=== PATIENT | female | born 1930 | race Hispanic/Latino ===

== ENCOUNTER 2017-09-17 15:55 | Observation (INO) | payer OTHER ==
[~2017-09-17] VITALS: Ht 137.2 cm; Wt 42.2 kg
[~2017-09-17 15:55] MED LIST: ALENDRONATE SOD70 MG PO; CALCIUM 600 +1 EAC8 PO; HYDROCODON-ACE1 EA11 PO; LISINOPRIL40 MG PO; MULTI-VITAMIN1 EACH PO; NEXIUM40 MG PO; NORCO 5-325 TA1 EACH PO; PROPRANOLOL HCL10 MG PO; URSODIOL300 MG PO; [UNRECOGNIZED DRUG - OTHER] PO
[2017-09-17] MEDS ORDERED: DIATRIZOATE MEGL/DIATRIZOA SOD 120 ML BTL PO ONE (16:44)
--- NOTE | 2017-09-17 18:30 | Diagnostic Imaging Report ---
EXAM: CT Abdomen and Pelvis WITHOUT contrast INDICATION: \S\CIRRHOSIS, ANASARCA \[id number] \S\1740 \S\N COMPARISON: None. TECHNIQUE: Abdomen and pelvis were scanned utilizing a multidetector helical scanner from the lung base to the pubic symphysis without administration of IV contrast. Absence of intravenous contrast decreases sensitivity for detection of focal lesions and vascular pathology. Coronal and sagittal reformations were obtained. Routine protocol was performed. IV CONTRAST: None ORAL CONTRAST: Administered. COMPLICATIONS: None RADIATION DOSE: Total DLP: 145.33 mGy*cm Estimated effective dose: (DLP x 0.015 x size factor) mSv CTDIvol has been reviewed. It is below the limits set by the Radiation Protocol Committee (RPC). FINDINGS: LINES and TUBES: None. LOWER THORAX: Partially imaged cardiomegaly and atherosclerotic calcification of coronary arteries. Small bilateral pleural effusions, right more than left HEPATOBILIARY: Unenhanced cirrhotic liver. Limited for evaluation of underlying mass without intravenous contrast. No biliary ductal dilation. GALLBLADDER: Cholelithiasis. SPLEEN: No splenomegaly. PANCREAS: No focal masses or ductal dilatation. ADRENALS: No adrenal nodules KIDNEYS/URETERS: No hydronephrosis. Punctate left superior pole calculus versus cortical calcification. GI TRACT: No abnormal distention, wall thickening, or evidence of bowel obstruction. Colonic diverticulosis without evidence of diverticulitis. Appendix is not clearly visualized. Small hiatal hernia. Contrast within distal esophagus, representing gastroesophageal reflux. PELVIC ORGANS/BLADDER: Unremarkable. LYMPH NODES: No lymphadenopathy. VESSELS: Limited evaluation without intravenous contrast. Moderate aortoiliac atherosclerotic disease. PERITONEUM / RETROPERITONEUM: No free air. Moderate volume ascites and mesenteric edema. BONES: Generalized demineralization limits evaluation. Lumbar spine scoliosis with multilevel advanced degenerative changes. Irregularity and increased sclerosis of the right symphysis pubic, may be related to a prior injury. Left femoral head sclerotic focus, likely a bone island. SOFT TISSUES: Mild anasarca. Bilateral buttock injection granulomas. IMPRESSION: Limited study without intravenous contrast. 1. Cirrhotic liver. 2. Moderate volume ascites, mild anasarca, and small bilateral pleural effusions, suggestive of volume overload. 3. Cholelithiasis without definite signs of cholecystitis. 4. Sigmoid diverticulosis without evidence of diverticulitis. 5. Irregularity and increased sclerosis of right symphysis pubic is probably related to prior injury. Please correlate clinically. Signed by: Dr. Vidal García MD on 09/17/2017 6:27 PM
--- NOTE | 2017-09-17 18:31 | Diagnostic Imaging Report ---
PROCEDURE: A single AP view of the chest. COMPARISON: None. INDICATIONS: SWELLING FINDINGS: Lines/tubes: None. Lungs: The lungs are well inflated. Bibasilar hazy opacities. Central vascular congestion and mild interstitial edema. Pleura: There is no pneumothorax. Heart and mediastinum: The heart and the mediastinum are unremarkable. Bones: No acute bony abnormality. IMPRESSION: Central vascular congestion and mild interstitial edema. Bibasilar hazy opacities representing small pleural effusions/atelectasis. Underlying pneumonia cannot be excluded in the proper clinical setting. Dictated by: Vidal García M.D. on 09/17/2017 at 18:40 Electronically approved by: Vidal García M.D. on 09/17/2017 at 18:40
[2017-09-17] MEDS ORDERED: SODIUM CHLORIDE FLUSH 10 ML SYR INJ PRN (18:45)
[2017-09-17] MEDS ORDERED: MORPHINE SULFATE 2 MG/ML SYR IV PRN (18:45)
[2017-09-17] MEDS ORDERED: MORPHINE SULFATE 4 MG/ML SYR IV PRN (18:45)
[2017-09-17] MEDS ORDERED: ONDANSETRON HCL INJ 2 MG/ML VIAL IV PRN (18:45)
[2017-09-17 19:02] LABS: BASOPHILS # (AUTO) 0.1 (0.0-0.1); BASOPHILS % 0.8 % (0.0-1.0); EOSINOPHILS # (AUTO) 0.2 (0.0-0.4); EOSINOPHILS % 2.5 % (0.0-6.0); HEMATOCRIT 38.1 % (34.2-44.1); HEMOGLOBIN 13.1 g/dL (12.0-16.0); LYMPHOCYTES # (AUTO) 2.1 (1.0-3.2); LYMPHOCYTES % 32.9 % (18.0-39.1); MEAN CORPUSCULAR HEMOGLOBIN 33.4 pg (28-32); MEAN CORPUSCULAR HGB CONC 34.4 g/dL (31-35); MEAN CORPUSCULAR VOLUME 97.2 fL (81-99); MONOCYTES # (AUTO) 0.6 (0.2-0.8); MONOCYTES % 8.7 % (4.4-11.3); NEUTROPHILS # (AUTO) 3.5 (2.1-6.9); NEUTROPHILS % 54.6 % (38.7-80.0); PLATELET COUNT 145 x10e3/uL (140-360); RED BLOOD COUNT 3.92 x10e6/uL (3.6-5.1); RED CELL DISTRIBUTION WIDTH 13.9 % (11.7-14.4)
[2017-09-17 19:14] LABS: ALBUMIN 3.1 g/dL (3.5-5.0); ALBUMIN/GLOBULIN RATIO 0.7 (0.8-2.0); ANION GAP 13.9 mmol/L (8-16); CALCIUM 9.7 mg/dL (8.4-10.2); CREATININE, SERUM 0.96 mg/dL (0.57-1.11); INR 0.89; MAGNESIUM 1.7 MG/DL (1.3-2.1); POTASSIUM 4.9 mmol/L (3.5-5.1); PROTHROMBIN TIME 12.5 seconds (11.9-14.5)
[2017-09-17 19:24] LABS: B-TYPE NATRIURETIC PEPTIDE2 799.3 pg/mL (0-100)
[2017-09-17 20:36] LABS: BILIRUBIN,URINE NEGATIVE (NEGATIVE); KETONES,URINE NEGATIVE (NEGATIVE); LEUKOCYTE ESTERASE ,URINE 2+ (NEGATIVE); NITRITE,URINE NEGATIVE (NEGATIVE); URINE UROBILINOGEN 0.2 mg/dL (0.2 - 1)
[2017-09-17 20:38] LABS: CLARITY,URINE SL CLOUDY (CLEAR); COLOR,URINE YELLOW (YELLOW); PROTEIN,URINE DIPSTICK TRACE (NEGATIVE)
[2017-09-17] MEDS: PIPER-TAZ 3.375 GM 50 ML IV SCH (21:59)
[2017-09-17] MEDS ORDERED: PIPER-TAZ 3.375 GM/50 ML BAG IV SCH (22:00)
[2017-09-17] MEDS ORDERED: NORVASC5 MG PO (22:01)
[2017-09-17] MEDS ORDERED: SODIUM CHLORIDE 0.9% 250ML 250 ML ONE (22:02)
[2017-09-18] VITALS (10 sets, daily range): BP systolic 140–188; BP diastolic 66–80
[2017-09-18] MEDS: PIPER-TAZ 3.375 GM 50 ML IV SCH (04:04)
[2017-09-18 06:40] LABS: BASOPHILS # (AUTO) 0.1 (0.0-0.1); BASOPHILS % 1.2 % (0.0-1.0); EOSINOPHILS # (AUTO) 0.4 (0.0-0.4); EOSINOPHILS % 7.5 % (0.0-6.0); HEMATOCRIT 31.4 % (34.2-44.1); LYMPHOCYTES # (AUTO) 1.5 (1.0-3.2); LYMPHOCYTES % 28.9 % (18.0-39.1); MEAN CORPUSCULAR HEMOGLOBIN 33.4 pg (28-32); MEAN CORPUSCULAR HGB CONC 34.4 g/dL (31-35); MEAN CORPUSCULAR VOLUME 97.2 fL (81-99); MONOCYTES # (AUTO) 0.6 (0.2-0.8); MONOCYTES % 11.2 % (4.4-11.3); NEUTROPHILS # (AUTO) 2.6 (2.1-6.9); NEUTROPHILS % 50.8 % (38.7-80.0); PLATELET COUNT 126 x10e3/uL (140-360); RED BLOOD COUNT 3.23 x10e6/uL (3.6-5.1); RED CELL DISTRIBUTION WIDTH 13.7 % (11.7-14.4)
[2017-09-18 06:46] LABS: HEMOGLOBIN 10.8 g/dL (12.0-16.0)
[2017-09-18 07:01] LABS: ALANINE AMINOTRANSFERASE 33 IU/L (0-55); ALBUMIN 2.5 g/dL (3.5-5.0); ALBUMIN/GLOBULIN RATIO 0.7 (0.8-2.0); ALKALINE PHOSPHATASE 156 IU/L (40-150); ANION GAP 12.8 mmol/L (8-16); BLOOD UREA NITROGEN 21 mg/dL (7-26); BUN/CREATININE RATIO 25 (6-25); CALCIUM 8.9 mg/dL (8.4-10.2); CARBON DIOXIDE 20 mmol/L (22-29); CHLORIDE 99 mmol/L (98-107); CREATININE, SERUM 0.83 mg/dL (0.57-1.11); EST GLOMERULAR FILTRATION RATE > 60 ML/MIN (60-); GLUCOSE 77 mg/dL (74-118); POTASSIUM 4.8 mmol/L (3.5-5.1); SODIUM 127 mmol/L (136-145)
[2017-09-18 07:19] LABS: LIPASE 103 U/L (8-78)
[2017-09-18] MEDS ORDERED: HYDROCODONE/APAP 5MG-325MG TAB PO PRN (08:45)
[2017-09-18] MEDS: FUROSEMIDE INJ 10 MG/ML 4 ML VIAL IV SCH (08:58)
[2017-09-18] MEDS: PANTOPRAZOLE SOD 40 MG TABEC PO SCH (08:58)
--- NOTE | 2017-09-18 09:24 | History and Physical ---
PCP: Yuliet Felder MD PERIODONTIST: Fidel Baca MD CHIEF COMPLAINT: Fluid overload. 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 The patient basically came in because she was loading with fluid with increasing swelling in the face, upper extremities and lower extremities. The patient also has ascites as well. The patient has had liver cirrhosis for years. Apparently she stopped the diuretic for some time now. The patient is now building up with fluid. PAST MEDICAL HISTORY: Liver cirrhosis, hypertension, osteoporosis. PAST SURGICAL HISTORY: Noncontributory. SOCIAL HISTORY: Patient does not smoke or use alcohol. No recreational drugs. She lives with her family. HOME MEDICATIONS: Alendronate, Norvasc, Nexium, ursodiol, lisinopril and [place] 5 mg p.r.n. ALLERGIES: NO KNOWN ALLERGIES. PHYSICAL EXAMINATION GENERAL: The patient is in no acute distress. She is awake. VITAL SIGNS: Temperature is 98. Blood pressure 168/74. Pulse rate is 42. HEENT: Normocephalic, atraumatic, anicteric. NECK: Supple grossly. PULMONARY: Diminished breath sounds with some rales at the bases. CARDIOVASCULAR: S1, S2. Bradycardia. ABDOMEN: Soft. EXTREMITIES: Positive edema. No cyanosis. NEUROLOGIC: No focal deficit. LABORATORY: Sodium is 127, potassium 4.8, chloride 99, bicarb 20, BUN 21, creatinine 0.8. Glucose 77. WBC is 5, hemoglobin 10.8, hematocrit 31.4, platelets 126. IMPRESSION 1. Liver cirrhosis with fluid overload. 2. Bradycardia. 3. Vascular congestion. PLAN: Paracentesis. A 2-D echocardiogram. Consultation with Dr. Mccrary for bradycardia. Will monitor the patient closely. Check thyroid function test and repeated lab work. Lasix 40 mg IV daily and Aldactone 50 mg p.o. at noontime. Job#: [id number]
[2017-09-18 09:43] LABS: FOLATE 19.2 ng/mL (7.0-15.4)
[2017-09-18] MEDS: URSODIOL 300 MG CAP PO SCH ×2 (09:50→16:28)
[2017-09-18] MEDS: SPIRONOLACTONE 25 MG TAB PO SCH (11:30)
[2017-09-19 01:18] VITALS: BP 163/72
--- NOTE | 2017-09-19 01:19 | Consultation ---
DATE OF CONSULTATION: September 18, 2017 An 86-year-old who has history of primary biliary cirrhosis along with hypertension, presented to the hospital because of increasing swelling in the face, upper and lower extremities, as well as abdominal girth. She denies any abdominal pain along with this problem. She apparently has not been taking her diuretics for quite some time. Her workup revealed that she is mildly anemic with hemoglobin of 10.8 and sodium is 127. Liver enzymes mildly elevated with an AST of 50 and alkaline phosphatase 175. Her albumin is 2.5. She has a CAT scan of the abdomen and pelvis which shows evidence of cirrhosis and also ascites as well as gallstones and diverticulosis. OTHER MEDICAL PROBLEMS: Significant for history of primary biliary cirrhosis apparently for over 30 years, history of hypertension, and history of osteoporosis. ALLERGIES: NONE. MEDICATIONS AT HOME: Alendronate, Norvasc, Nexium, ursodiol, lisinopril, and White. SOCIAL HISTORY: No alcohol abuse. FAMILY HISTORY: Noncontributory. REVIEW OF SYSTEMS: Denies any chest pain. No shortness of breath. Denies any dysphagia or odynophagia. Denies any dysuria, hematuria, or any kind of syncopal episode. PHYSICAL EXAMINATION GENERAL: Patient is awake, alert, appeared to be stable. Not in acute distress at this point. VITAL SIGNS: Afebrile currently. HEAD, EYES, EARS, NOSE, THROAT: Normocephalic. Sclerae are anicteric. NECK: Supple. HEART: Regular. ABDOMEN: Soft. It is distended with ascites. It is nontender. EXTREMITIES: No cyanosis or clubbing. LAB VALUES: 127. AST of 39, ALT of 33, alkaline phosphatase is 153. CAT scan as mentioned before. IMPRESSIONS 1. Primary biliary cirrhosis, appears to be worsening. Patient now developed ascites. There is no abdominal pain at this point. 2. Fluid overload. 3. Anemia. RECOMMENDATIONS: Agree with diuretics and also with paracentesis tomorrow. Follow labs and clinically. Job#: [id number] CF cc:MD BRIANNE CLIFTON MD
[2017-09-19 03:29] VITALS: BP 163/72
[2017-09-19] MEDS ORDERED: CORGARD20 MG PO (03:41)
[2017-09-19 04:00] VITALS: BP 160/65
[2017-09-19 06:51] LABS: BASOPHILS # (AUTO) 0.1 (0.0-0.1); EOSINOPHILS # (AUTO) 0.2 (0.0-0.4); EOSINOPHILS % 4.9 % (0.0-6.0); HEMOGLOBIN 9.5 g/dL (12.0-16.0); LYMPHOCYTES # (AUTO) 1.4 (1.0-3.2); LYMPHOCYTES % 29.6 % (18.0-39.1); MEAN CORPUSCULAR HEMOGLOBIN 33.5 pg (28-32); MEAN CORPUSCULAR HGB CONC 35.2 g/dL (31-35); MEAN CORPUSCULAR VOLUME 95.1 fL (81-99); MONOCYTES # (AUTO) 0.7 (0.2-0.8); MONOCYTES % 13.8 % (4.4-11.3); NEUTROPHILS # (AUTO) 2.5 (2.1-6.9); NEUTROPHILS % 50.3 % (38.7-80.0); PLATELET COUNT 104 x10e3/uL (140-360); RED BLOOD COUNT 2.84 x10e6/uL (3.6-5.1); RED CELL DISTRIBUTION WIDTH 13.5 % (11.7-14.4)
[2017-09-19 07:12] LABS: ANION GAP 11.6 mmol/L (8-16); CALCIUM 8.5 mg/dL (8.4-10.2); CREATININE, SERUM 1.03 mg/dL (0.57-1.11); MAGNESIUM 1.5 MG/DL (1.3-2.1); POTASSIUM 4.6 mmol/L (3.5-5.1)
[2017-09-19 08:16] VITALS: BP 137/59
[2017-09-19] MEDS: FUROSEMIDE INJ 10 MG/ML 4 ML VIAL IV SCH ×2 (08:53→09:52)
[2017-09-19] MEDS: URSODIOL 300 MG CAP PO SCH (09:00)
--- NOTE | 2017-09-19 10:56 | Consultation ---
DATE OF CONSULTATION: September 18, 2017 CONSULTING PHYSICIAN: Dr. Chin Winter. REASON FOR CONSULTATION: Bradycardia. HPI: This is an 86-year-old female that presented with fluid overload. According to the patient, she started seeing increased edema to her face, upper and lower extremities that she presented for evaluation. She has a history of biliary cirrhosis of the liver, has been on diuretic, but she has stopped taking her diuretic for long time now and started having increased fluid overload. She denies any chest pain, any palpitation, any dizziness, or shortness of breath. She was found to be on Corgard on her home medication list. Cardiology was consulted for bradycardia. PAST MEDICAL HISTORY: Liver cirrhosis, hypertension, and osteoporosis. PAST SURGICAL HISTORY: Appendectomy. FAMILY HISTORY: Noncontributory. SOCIAL HISTORY: She lives at home with her son. MEDICATIONS: She was on Norvasc, Corgard, vitamins, lisinopril, Nexium, hydrocodone, and Fosamax. ALLERGIES: SHE IS NOT ALLERGIC TO ANY MEDICATION. REVIEW OF SYSTEMS: Negative except those mentioned above. PHYSICAL EXAMINATION VITAL SIGNS: Temperature 97, heart rate 50, blood pressure 160/65, respirations 18, and oxygen saturation 98% on room air. GENERAL: She is awake, alert, and oriented times 3. HEENT: Mucous membranes moist. NECK: Supple. LUNGS: Bilateral clear to auscultation. CARDIOVASCULAR: S1, S2 present. ABDOMEN: Distended. NEUROLOGICAL: She is able to move all extremities. EXTREMITIES: Bilateral extremities with trace edema. LABS: Sodium 128, potassium 4.6, chloride 100, CO2 of 21, BUN 26, creatinine 1.03, and glucose 85. White blood cell 4.87, hemoglobin 9.5, hematocrit 27.0, and platelet 104. PT 12.5, PTT 23.8, and INR 0.89. IMPRESSION 1. Liver cirrhosis. 2. Hypertension. 3. Asymptomatic bradycardia. 4. Anemia. ASSESSMENT AND PLAN: She is asymptomatic. Heart rate in the 50s. She was on Corgard. We will go ahead and discontinue it. We will get an echo to assess the LV and the valve function. We are planning for paracentesis. We will go ahead and continue her diuretic due to the central venous congestion and mild interstitial edema. She also had a CT that showed gallstone and diverticulosis and GI is following. Further cardiac workup pending clinical course. Thank you for this consultation. Dictated by: Alexandria Reyes NP Job#: [id number] ALEX
[2017-09-19 12:05] VITALS: BP 166/71
[2017-09-19] MEDS: SPIRONOLACTONE 25 MG TAB PO SCH (13:21)
[2017-09-19] MEDS: PANTOPRAZOLE SOD 40 MG TABEC PO SCH (13:21)
--- NOTE | 2017-09-19 13:28 | Diagnostic Imaging Report ---
PROCEDURE:US ABDOMEN LIMITED COMPARISON:CT abdomen and pelvis without contrast 09/17/2017. INDICATIONS:Ascites FINDINGS: Limited 4 quadrant abdominal ultrasound was performed in anticipation of requested ultrasound-guided therapeutic paracentesis. Trace ascites is noted in the bilateral lower quadrants and right moderate, decreased relative to CT abdomen and pelvis 09/17/2017, and of insufficient quantity for ultrasound guided paracentesis. Quality Control Associate sonographic images were stored and the procedure was aborted. CONCLUSION: Aborted ultrasound guided paracentesis secondary to insufficient quantity of ascitic fluid. Dictated by: Don Merritt M.D. on 09/19/2017 at 13:37 Electronically approved by: Don Merritt M.D. on 09/19/2017 at 13:37
--- NOTE | 2017-11-12 21:27 | Discharge Summary ---
FINAL DIAGNOSES 1. Liver cirrhosis associated with vascular congestion and abdominal ascites. 2. Abdominal pain, stable. 3. No significant abdominal fluid for paracentesis. SUMMARY: Patient is 86-year-old female, who came in with abdominal pain. Evaluation showed possible ascites. The patient was evaluated by interventional radiology. There was no significant ascites for paracentesis. The patient was stable. She was comfortable. No further workup needed. The patient's liver cirrhosis, vascular congestion, to resume home medication. Bradycardia resolved. Lasix 40 mg IV daily. Aldactone 50 mg daily was given. Those medications to orally. Patient was stable, discharged home. 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 Patient expressed understanding. Medication was given. Patient discharged home. Follow up with Dr. Yuliet Felder as an outpatient. Job#: [id number] CQ
== END 2017-09-19 15:04 | disposition home or self-care (01) ==
LOC: ER 15:55 → ERHOLD 19:38 → IMCU 09-18 01:10
PROVIDERS: ADMIT Internal Medicine; ATTEND Internal Medicine
DX: K74.3 Primary biliary cirrhosis (principal); E87.70 Fluid overload, unspecified; R18.8 Other ascites; J90 Pleural effusion, not elsewhere classified; K57.30 Diverticulosis of large intestine without perforation or abscess without bleeding; R00.1 Bradycardia, unspecified; D64.9 Anemia, unspecified; I10 Essential (primary) hypertension; M81.0 Age-related osteoporosis without current pathological fracture; K80.20 Calculus of gallbladder without cholecystitis without obstruction
CPT/HCPCS: 36415 ×3; 71045; 74176; 76705; 80048; 80053 ×2; 81001; 82607; 82746; 83605; 83690 ×2; 83735 ×2; 83880; 84100; 84443; 85025 ×3; 85610; 85730; 87040; 87086; 87186; 93005; 93306; 96365; 99284; G0378 ×3; J1940 ×2; J2543 ×2; J7050; Q9963

== ENCOUNTER → 2018-04-08 | Outpatient (CLI) | payer OTHER ==
[~2018-04-08] MED LIST changes: +CORGARD20 MG PO; +NORVASC5 MG PO
--- NOTE | 2018-04-08 10:20 | Diagnostic Imaging Report ---
PROCEDURE:ABDOMINAL ULTRASOUND COMPARISON:Limited abdominal ultrasound 09/19/[address] Abdomen/Pelvis 09/17/17. INDICATIONS: Abnormal Liver Function, Cirrhosis TECHNIQUE: Transverse and longitudinal images of the upper abdomen were obtained. FINDINGS: Exam limited by overlying bowel gas and respiratory artifact. Liver: Size: 9.9 cm in the right midclavicular line, normal Appearance: Cirrhotic morphology Mass: No focal masses Spleen: Size: 11.1 cm in length, normal Echogenicity: Normal Mass: No focal masses Gallbladder: The gallbladder is non-distended but has stones and wall thickening. No pericholecystic fluid. Negative reported sonographic Reese's sign. Bile Ducts: Intrahepatic Ducts: No dilatation Extrahepatic Ducts: Common bile duct measures 0.3 cm, no dilatation Pancreas: Visualized portions of the neck and proximal body are normal. Right Kidney: Size: 7.9 cm Echogenicity: Mildly increased. Collecting System: No hydronephrosis Stone: None Cyst/Mass: None Left Kidney: Size: 7.7 cm Echogenicity: Mildly increased. Collecting System: No hydronephrosis Stone: None Cyst/Mass: None Vessels: Aorta: Visualized portions are normal Inferior Vena Cava: Visualized portions and normal Main Portal Vein: 1.2 cm, normal size with hepatopedal flow. Free Fluid: Trace abdominal ascites. IMPRESSION: Cirrhotic liver with trace abdominal ascites. Non-distended gallbladder with wall thickening. Gallstones. No specific sonographic signs of cholecystitis. Dictated by: EFFIE CRONIN M.D. on 04/08/2018 at 8:35 Electronically approved by: EFFIE CRONIN M.D. on 04/08/2018 at 8:35
== END ==
LOC: US 07:37
PROVIDERS: ATTEND Internal Medicine Gastroenterology
DX: K74.3 Primary biliary cirrhosis (principal); R74.0 Nonspecific elevation of levels of transaminase and lactic acid dehydrogenase [LDH]; D64.9 Anemia, unspecified; Z68.1 Body mass index [BMI] 19.9 or less, adult; Z87.891 Personal history of nicotine dependence
CPT/HCPCS: 76700

== ENCOUNTER → 2018-07-02 | Day surgery (SDC) | payer OTHER ==
[~2018-07-02] MED LIST changes: +FUROSEMIDE40 MG PO; +LACTULOSE10 GM/15 M PO; +LIDOCAINE HCL 2% LOCAL INJ 5 ML SDV VIAL INJ ONE; +PROPOFOL IV EMULSION 10 MG/ML 20 ML VIAL ONE; +SPIRONOLACTONE25 MG PO; +TYLENOL WITH C1 EACH PO; +URSODIOL300 MG; +XIFAXAN550 MG; +XIFAXAN550 MG PO
--- OUTSIDE RECORDS SUMMARY | 2018-07-02 05:34 | XMS REPORT ---
Author Author [facility] Address Unknown Phone Unavailable Care Team Providers Care Cigarette Paper Tester Name Role Phone Apryl PEARL Unavailable Unavailable OPAL SANCHEZ Unavailable Unavailable Problems This patient has no known problems. Allergies, Adverse Reactions, Alerts This patient has no known allergies or adverse reactions. Medications This patient has no known medications. Results Test Description Test Time Test Comments Text Results Atomic Results Result Comments US ABDOMEN COMPLETE 2018-04-08 08:35:00 [facility] [address] [address] Patient Name: MARYA GREENE MR #: [id number] : 1930 Age/Sex: 87/F Req #: [id number] Adm Physician: Ordered by: FUENTES PEARL MD Report #: [id number] Location: US Room/Bed: Procedure: [id number] US/US ABDOMEN COMPLETE Exam Date: Exam Time: REPORT STATUS: Signed PROCEDURE: ABDOMINAL ULTRASOUND COMPARISON: Limited abdominal ultrasound 09/19/[address] Abdomen/Pelvis 09/17/17. INDICATIONS: Abnormal Liver Function, Cirrhosis TECHNIQUE: Transverse and longitudinal images of the upper abdomen were obtained. FINDINGS: Exam limited by overlying bowel gas and respiratory artifact. Liver: Size: 9.9 cm in the right midclavicular line, normal Appearance: Cirrhotic morphology Mass: No focal masses Spleen: Size: 11.1 cm in length, normal Echogenicity: Normal Mass: No focal masses Gallbladder: The gallbladder is non-distended but has stones and wall thickening. No pericholecystic fluid. Negative reported sonographic Reese's sign. Bile Ducts: Intrahepatic Ducts: No dilatation Extrahepatic Ducts: Common bile duct measures 0.3 cm, no dilatation Pancreas: Visualized portions of the neck and proximal body are normal. Right Kidney: Size: 7.9 cm Echogenicity: Mildly increased. Collecting System: No hydronephrosis Stone: None Cyst/Mass: None Left Kidney: Size: 7.7 cm Echogenicity: Mildly increased. Collecting System: No hydronephrosis Stone: None Cyst/Mass: None Vessels: Aorta: Visualized portions are normal Inferior Vena Cava: Visualized portions and normal Main Portal Vein: 1.2 cm, normal size with hepatopedal flow. Free Fluid: Trace abdominal ascites. IMPRESSION: Cirrhotic liver with trace abdominal ascites. Non-distended gallbladder with wall thickening. Gallstones. No specific sonographic signs of cholecystitis. Dictated by: EFFIE CRONIN M.D. on 04/08/2018 at 8:35 Electronically approved by: EFFIE CRONIN M.D. on 04/08/2018 at 8:35 Dictated By: EFFIE CRONIN MD 4 Transcribed By: CHANO on 04/08/18834 COPY TO: FUENTES PEARL MD US ABDOMEN LIMITED [address] [address] Patient Name: MARYA GREENE MR #: [id number] : 1930 Age/Sex: 86/F Req #: [id number] Adm Physician: OPAL SANCHEZ MD Ordered by: OPAL SANCHEZ MD Report #: [id number] Location: [facility] Room/Bed: [address] [address] Procedure: [id number] US/US ABDOMEN LIMITED Exam Date: Exam Time: REPORT STATUS: Signed PROCEDURE: US ABDOMEN LIMITED COMPARISON: CT abdomen and pelvis without contrast 09/17/2017. INDICATIONS: Ascites FINDINGS: Limited 4 quadrant abdominal ultrasound was performed in anticipation of requested ultrasound-guided therapeutic paracentesis. Trace ascites is noted in the bilateral lower quadrants and right moderate, decreased relative to CT abdomen and pelvis 09/17/2017, and of insufficient quantity for ultrasound guided paracentesis. Process Inspector sonographic images were stored and the procedure was aborted. CONCLUSION: Aborted ultrasound guided paracentesis secondary to insufficient quantity of ascitic fluid. Dictated by: Mary Nice M.D. on 09/19/2017 at 13:37 Electronically approved by: Mary Nice M.D. on 09/19/2017 at 13:37 Dictated By: MARY NICE MD 1337 Transcribed By: CHANO on 09/19/17 1337 COPY TO: OPAL SANCHEZ MD CT ABDOMEN/PELVIS WO [address] [place] [address] Patient Name: MARYA GREENE MR #: [id number] : 1930 Age/Sex: 86/F Req #: [id number] Adm Physician: Ordered by: RADHA JUDD MD Report #: [id number] Location: ER Room/Bed: Procedure: [id number] CT/CT ABDOMEN/PELVIS WO Exam Date: 09/17/17 Exam Time: 1740 REPORT STATUS: Signed EXAM: CT Abdomen and Pelvis WITHOUT contrast INDICATION: COMPARISON: None. TECHNIQUE: Abdomen and pelvis were scanned utilizing a multidetector helical scanner from the lung base to the pubic symphysis without administration of IV contrast. Absence of intravenous contrast decreases sensitivity for detection of focal lesions and vascular pathology. Coronal and sagittal reformations were obtained. Routine protocol was performed. IV CONTRAST: None ORAL CONTRAST: Administered. COMPLICATIONS: None RADIATION DOSE: Total DLP: 145.33 mGy*cm Estimated effective dose: (DLP x 0.015 x size factor) mSv CTDIvol has been reviewed. It is below the limits set by the Radiation Protocol Committee (RPC). FINDINGS: LINES and TUBES: None. LOWER THORAX: Partially imaged cardiomegaly and atherosclerotic calcification of coronary arteries. Small bilateral pleural effusions, right more than left HEPATOBILIARY: Unenhanced cirrhotic liver. Limited for evaluation of underlying mass without intravenous contrast. No biliary ductal dilation. GALLBLADDER: Cholelithiasis. SPLEEN: No splenomegaly. PANCREAS: No focal masses or ductal dilatation. ADRENALS: No adrenal nodules KIDNEYS/URETERS: No hydronephrosis. Punctate left superior pole calculus versus cortical calcification. GI TRACT: No abnormal distention, wall thickening, or evidence of bowel obstruction. Colonic diverticulosis without evidence of diverticulitis. Appendix is not clearly visualized. Small hiatal hernia. Contrast within distal esophagus, representing gastroesophageal reflux. PELVIC ORGANS/BLADDER: Unremarkable. LYMPH NODES: No lymphadenopathy. VESSELS: Limited evaluation without intravenous contrast. Moderate aortoiliac atherosclerotic disease. PERITONEUM / RETROPERITONEUM: No free air. Moderate volume ascites and mesenteric edema. BONES: Generalized demineralization limits evaluation. Lumbar spine scoliosis with multilevel advanced degenerative changes. Irregularity and increased sclerosis of the right symphysis pubic, may be related to a prior injury. Left femoral head sclerotic focus, likely a bone island. SOFT TISSUES: Mild anasarca. Bilateral buttock injection granulomas. IMPRESSION: Limited study without intravenous contrast. 1. Cirrhotic liver. 2. Moderate volume ascites, mild anasarca, and small bilateral pleural effusions, suggestive of volume overload. 3. Cholelithiasis without definite signs of cholecystitis. 4. Sigmoid diverticulosis without evidence of diverticulitis. 5. Irregularity and increased sclerosis of right symphysis pubic is probably related to prior injury. Please correlate clinically. Signed by: Dr. Vidal Weaver MD on 09/17/2017 6:27 PM Dictated By: VIDAL WEAVER MD 26 Transcribed By: JIE on 09/17/171826 COPY TO: RADHA JUDD MD CHEST SINGLE (PORTABLE) [address] [place] [address] Patient Name: MARYA GREENE MR #: [id number] : 1930 Age/Sex: 86/F Req #: [id number] Adm Physician: Ordered by: RADHA JUDD MD Report #: [id number] Location: ER Room/Bed: Procedure: [id number] DX/CHEST SINGLE (PORTABLE) Exam Date: 09/17/17 Exam Time: 1740 REPORT STATUS: Signed PROCEDURE: A single AP view of the chest. COMPARISON: None. INDICATIONS: SWELLING FINDINGS: Lines/tubes: None. Lungs: The lungs are well inflated. Bibasilar hazy opacities. Central vascular congestion and mild interstitial edema. Pleura: There is no pneumothorax. Heart and mediastinum: The heart and the mediastinum are unremarkable. Bones: No acute bony abnormality. IMPRESSION: Central vascular congestion and mild interstitial edema. Bibasilar hazy opacities representing small pleural effusions/atelectasis. Underlying pneumonia cannot be excluded in the proper clinical setting. Dictated by: Vidal Weaver M.D. on 09/17/2017 at 18:40 Electronically approved by: Vidal Weaver M.D. on 09/17/2017 at 18:40 Dictated By: VIDAL WEAVER MD 39 Transcribed By: CHANO on 09/17/171839 COPY TO: RADHA JUDD MD
[2018-07-02 07:13] LABS: BASOPHILS # (AUTO) 0.1 (0.0-0.1); EOSINOPHILS # (AUTO) 0.4 (0.0-0.4); EOSINOPHILS % 8.2 % (0.0-6.0); HEMATOCRIT 39.6 % (34.2-44.1); HEMOGLOBIN 12.9 g/dL (12.0-16.0); LYMPHOCYTES # (AUTO) 1.5 (1.0-3.2); LYMPHOCYTES % 29.4 % (18.0-39.1); MEAN CORPUSCULAR HEMOGLOBIN 33.4 pg (28-32); MEAN CORPUSCULAR HGB CONC 32.6 g/dL (31-35); MEAN CORPUSCULAR VOLUME 102.6 fL (81-99); MONOCYTES # (AUTO) 0.4 (0.2-0.8); MONOCYTES % 8.7 % (4.4-11.3); NEUTROPHILS # (AUTO) 2.6 (2.1-6.9); NEUTROPHILS % 52.3 % (38.7-80.0); PLATELET COUNT 138 x10e3/uL (140-360); RED BLOOD COUNT 3.86 x10e6/uL (3.6-5.1); RED CELL DISTRIBUTION WIDTH 15.8 % (11.7-14.4)
--- NOTE | 2018-07-02 08:40 | Operative Report ---
DATE OF PROCEDURE: July 02, 2018 PROCEDURE: Esophagogastroduodenoscopy. The patient with a history of cirrhosis. Rule out esophageal varices. PROCEDURE: After informed written consent, premedication with monitored anesthesia care, standard video Olympus gastroscope was introduced into the mouth, esophagus, stomach, and to the 2nd portion of the duodenum. First and 2nd portion of the duodenum appeared to be normal. Antrum, body and fundus showed moderate portal hypertensive gastropathy. Retroflexion revealed a small hiatal hernia. The esophagus showed 1-2+ esophageal varices. There was no stigmata. IMPRESSION 1. Hiatal hernia. 2. One to 2+ esophageal varices. 3. Portal gastropathy. RECOMMENDATIONS: Stay on PPI, beta blockers and follow her on clinical rounds. Further recommendations will be based on the patient's clinical course. Job#: [id number] VALERIA
[2018-07-02 08:55] VITALS: BP 152/64
== END | disposition home or self-care (01) ==
LOC: OR 05:32
PROVIDERS: ATTEND Internal Medicine Gastroenterology
DX: K74.60 Unspecified cirrhosis of liver (principal); I85.10 Secondary esophageal varices without bleeding; K76.6 Portal hypertension; K44.9 Diaphragmatic hernia without obstruction or gangrene; K31.89 Other diseases of stomach and duodenum; Z71.3 Dietary counseling and surveillance; R18.8 Other ascites; K74.3 Primary biliary cirrhosis; I11.0 Hypertensive heart disease with heart failure; I50.9 Heart failure, unspecified; M19.90 Unspecified osteoarthritis, unspecified site
CPT/HCPCS: 36415; 43235; 85025; 93005; J2001; J2704

== ENCOUNTER 2019-01-26 16:30 | Emergency (ER) | payer OTHER ==
[~2019-01-26] VITALS: Ht 259.1 cm; Wt 42.2 kg
[~2019-01-26 16:30] MED LIST changes: -LIDOCAINE HCL 2% LOCAL INJ 5 ML SDV VIAL INJ ONE; -PROPOFOL IV EMULSION 10 MG/ML 20 ML VIAL ONE
--- OUTSIDE RECORDS SUMMARY | 2019-01-26 16:33 | XMS REPORT | Continuity of Care Document ---
Author Author [facility] Address Unknown Phone Unavailable Problems Problem Status Onset Date Classification Date Reported Comments Source Age-related osteoporosis without current pathological fracture Active Problem 01/15/2019 Donald Ramirezer Vitamin D deficiency Active Problem 01/15/2019 Donald Florian Scleroderma, limited Active Problem 01/15/2019 Donald Florian Other intermediate drug therapy Active Problem 01/15/2019 Donald Florian Raynaud''s disease without gangrene Active Problem 01/15/2019 Donald Florian Body mass index 20.0-20.9, adult Active Problem 01/15/2019 Donald Florian Polyarthritis Active Problem 01/15/2019 Donald Florian 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/2019 Donald Florian Other osteoporosis without current pathological fracture Active Problem 01/15/2019 Donald Florian Renal insufficiency Active Problem 01/15/2019 Donald Florian Medications Medication Details Route Status Patient Instructions Ordering Provider Order Date Source Prolia 60MG SQ Subcutaneous Active 60 MG/ML Subcutaneous Q 6 MONTHS [place] Donald Florian Spironolactone 1 tablet with food Orally Active 25 MG Orally Once a day [place] Donald Florian Rifaximin 1 tablet Orally Active 550 MG Orally Twice a day [place] Donald Florian Furosemide 1 tablet Orally Active 40 MG Orally Once a day [place] Donald Florian Lactulose 1 packet Orally Active 10 GM Orally Once a day [place] Donald Florian Esomeprazole Magnesium 1 capsule Orally Active 40 MG Orally Once a day [place] Donald Florian Nadolol 1 tablet Orally Active 20 MG Orally Once a day [place] Donald Florian Furosemide 1 tablet Orally Active 20 MG Orally Once a day [place] Donald Florian Lisinopril 1 tablet Orally Active 40 MG Orally Once a day [place] Donald Florian Colestipol HCl 2 tablets Orally Active 1 GM Orally bid [place] Donald Florian Ursodiol 1 tablet Orally Active 300 MG Orally Twice a day [place] Donald Florian Allergies, Adverse Reactions, Alerts Substance Category Reaction Severity Reaction type Status Date Reported Comments Source Alendronate Sodium Adverse Reaction Info Not Available Adverse Reaction Active 07/26/2018 Donald Florian Immunizations Immunization Date Given Site Status Last Updated Comments Source Results Order Name Results Value Reference Range Date Interpretation Comments Source Vital Signs Vital Sign Value Date Comments Source Weight 81.9 07/26/2018 Donald Florian Height 55 07/26/2018 Donald Florian Temperature Oral (F) 97.0 F 07/26/2018 Donald Florian Heart Rate 84 07/26/2018 Donald Florian Diastolic (mm Hg) 70 07/26/2018 Donald Florian Systolic (mm Hg) 132 07/26/2018 Donald Florian Weight 82 01/22/2018 Donald Florian Height 54 01/22/2018 Donald Florian Temperature Oral (F) 98.2 F 01/22/2018 Donald Florian Heart Rate 46 01/22/2018 Donald Florian Diastolic (mm Hg) 68 01/22/2018 Donald Florian Systolic (mm Hg) 100 01/22/2018 Donald Florian Weight 82 07/16/2017 Donald Florian Height 54 07/16/2017 Donald Florian Temperature Oral (F) 97.4 F 07/16/2017 Donald Florian Heart Rate 48 07/16/2017 Donald Florian Diastolic (mm Hg) 50 07/16/2017 Donald Florian Systolic (mm Hg) 108 07/16/2017 Donald Florian Encounters Location Location Details Encounter Type Encounter Number Reason For Visit Attending Provider ADM Date DC Date Status Source Procedures Procedure Code Date Perfomer Comments Source
--- OUTSIDE RECORDS SUMMARY | 2019-01-26 16:34 | XMS REPORT ---
Author Author Wally Florian Organization [employer] Address Unknown Phone Unavailable Care Team Providers Care Senior System Operator Name Role Phone Wally Florian CP Unavailable Allergies No Known Allergies Problems Problem Type Condition Code Onset Dates Condition Status Problem Age-related osteoporosis without current pathological fracture M81.0 Active Problem Vitamin D deficiency E55.9 Active Assessment Other assisted (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 Z79.899 Active Assessment Vitamin D deficiency E55.9 Active Assessment Age-related osteoporosis without current pathological fracture M81.0 Active Problem Scleroderma, limited M34.9 Active Problem 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
--- OUTSIDE RECORDS SUMMARY | 2019-01-26 16:34 | XMS REPORT ---
Author Author Wally Florian Organization [employer] Address Unknown Phone Unavailable Care Team Providers Care Installer Technician Name Role Phone Wally Florian CP Unavailable Allergies, Adverse Reactions, Alerts Substance Reaction Event Type Alendronate Sodium Info Not Available Drug Allergy Problems Problem Type Condition Code Onset Dates Condition Status Assessment Age-related osteoporosis without current pathological fracture M81.0 Active Problem Age-related osteoporosis without current pathological fracture M81.0 Active Problem Vitamin D deficiency E55.9 Active Problem Scleroderma, limited M34.9 Active Problem 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.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 Active Problem Raynaud''s disease without gangrene I73.00 Active Problem Body mass index (BMI) 20.0-20.9, adult Z68.20 Active Problem Polyarthritis M13.0 Active Problem 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 Active Problem Other osteoporosis without current pathological fracture M81.8 Active Assessment Vitamin D deficiency E55.9 Active Assessment Other osteoporosis without current pathological fracture M81.8 Active Assessment Scleroderma, limited M34.9 Active Assessment Polyarthritis M13.0 Active Medications Medication Code System Code Instructions Start Date End Date Status Dosage Spironolactone ND 41757744559 25 MG Orally Once a day Active 1 tablet with food Rifaximin [facility] [address]-28 550 MG Orally Twice a day Active 1 tablet Furosemide ND 82776868006 40 MG Orally Once a day Active 1 tablet Lactulose [facility] [address]-73 10 GM Orally Once a day Active 1 packet Prolia ND 73289295060 60 MG/ML Subcutaneous Q 6 MONTHS Active 60MG SQ Esomeprazole Magnesium ND 81560849802 40 MG Orally Once a day Active 1 capsule Vital Signs Date/Time: January 22, 2018 BMI 19.77 Index Weight 82 lbs Height 54 in Temperature 98.2 F Cardiac Monitoring Heart Rate 46 /min Blood Pressure Diastolic 68 mm Hg Blood Pressure Systolic 100 mm Hg Results No Known Results Summary Purpose [employer] Submission
--- OUTSIDE RECORDS SUMMARY | 2019-01-26 16:34 | XMS REPORT ---
Author Author Wally Florian [facility] e[employer] Address Unknown Phone Unavailable Care Team Providers Care Air Quality Consultant Name Role Phone Wally Florian Unavailable Allergies, Adverse Reactions, Alerts Substance Reaction Event Type Alendronate Sodium Info Not Available Drug Allergy Problems Problem Type Condition Code Onset Dates Condition Status Assessment Age-related osteoporosis without current pathological fracture M81.0 Active Problem Age-related osteoporosis without current pathological fracture M81.0 Active Problem Vitamin D deficiency E55.9 Active Problem Scleroderma, limited M34.9 Active Problem 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.899 Active Problem Raynaud''s disease without gangrene I73.00 Active Problem Body mass index (BMI) 20.0-20.9, adult Z68.20 Active Problem Polyarthritis M13.0 Active Problem 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 Active Problem Other osteoporosis without current pathological fracture M81.8 Active Assessment Vitamin D deficiency E55.9 Active Assessment Polyarthritis M13.0 Active Assessment Scleroderma, limited M34.9 Active Assessment 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.899 Active Assessment Raynaud''s disease without gangrene I73.00 Active Medications Medication Code System Code Instructions Start Date End Date Status Dosage Nadolol ND 67608947673 20 MG Orally Once a day Active 1 tablet Spironolactone ND 82822338689 25 MG Orally QD Active 1 tablet Prolia ND 76589995913 60 MG/ML Subcutaneous Q 6 MONTHS Active 60MG SQ Furosemide ND 52704234748 20 MG Orally Once a day Active 1 tablet Lisinopril ND 66668017927 40 MG Orally Once a day Active 1 tablet Colestipol HCl ND 01651454861 1 GM Orally bid Active 2 tablets Ursodiol ND 56591460935 300 MG Orally Twice a day Active 1 tablet Vital Signs Date/Time: Jul 16, 2017 BMI 19.77 Index Weight 82 lbs Height 54 in Temperature 97.4 F Cardiac Monitoring Heart Rate 48 /min Blood Pressure Diastolic 50 mm Hg Blood Pressure Systolic 108 mm Hg Results No Known Results Summary Purpose [employer]ClinicalWorks Submission
--- OUTSIDE RECORDS SUMMARY | 2019-01-26 16:34 | XMS REPORT ---
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
--- OUTSIDE RECORDS SUMMARY | 2019-01-26 16:34 | XMS REPORT ---
Author Author Wally Florian Organization [employer] Address Unknown Phone Unavailable Care Team Providers Care Universal Worker Assisted Living Name Role Phone Wally Florian CP Unavailable Allergies No Known Allergies Problems Problem Type Condition Code Onset Dates Condition Status Problem Vitamin D deficiency E55.9 Active Problem Polyarthritis M13.0 Active Problem Age-related osteoporosis without current pathological fracture M81.0 Active Assessment Other jail (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 Z79.899 Active Assessment Other osteoporosis without current pathological fracture M81.8 Active Assessment Polyarthritis M13.0 Active Problem Raynaud''s disease without gangrene I73.00 Active Problem Scleroderma, limited M34.9 Active Problem Renal insufficiency N28.9 Active Problem Other osteoporosis without current pathological fracture M81.8 Active Problem Body mass index (BMI) 20.0-20.9, adult Z68.20 Active Problem 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
--- OUTSIDE RECORDS SUMMARY | 2019-01-26 16:34 | XMS REPORT ---
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
--- OUTSIDE RECORDS SUMMARY | 2019-01-26 16:34 | XMS REPORT ---
Author Author Wally Florian Organization [employer] Address Unknown Phone Unavailable Care Team Providers Care Certified Hyperbaric Technologist Name Role Phone Wally Florian CP Unavailable Allergies No Known Allergies Problems Problem Type Condition Code Onset Dates Condition Status Problem Vitamin D deficiency E55.9 Active Problem Polyarthritis M13.0 Active Problem Age-related osteoporosis without current pathological fracture M81.0 Active Problem Raynaud''s disease without gangrene I73.00 Active Problem Scleroderma, limited M34.9 Active Problem Renal insufficiency N28.9 Active Problem Other osteoporosis without current pathological fracture M81.8 Active Problem Body mass index (BMI) 20.0-20.9, adult Z68.20 Active Problem 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
--- OUTSIDE RECORDS SUMMARY | 2019-01-26 16:34 | XMS REPORT ---
Author Author Wally Florian Organization [employer] Address Unknown Phone Unavailable Care Team Providers Care Him Analyst Name Role Phone Wally Florian CP Unavailable [...] (BMI) 20.0-20.9, adult Z68.20 Active Problem Other long term care social worker (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
--- OUTSIDE RECORDS SUMMARY | 2019-01-26 16:34 | XMS REPORT ---
Author Author Wally Florian [facility] e[employer] Address Unknown Phone Unavailable Care Team Providers Care Social Work Professor Name Role Phone Wally Florian Unavailable Allergies, [...] (BMI) 20.0-20.9, adult Z68.20 Active Problem Other correction (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 Z79.899 Active Problem 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 Active Assessment Raynaud''s disease without gangrene I73.00 Active Assessment Polyarthritis M13.0 Active Assessment Scleroderma, limited M34.9 Active Assessment Renal insufficiency N28.9 Active Assessment Age-related osteoporosis without current pathological fracture M81.0 Active Assessment 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 Active Medications Medication Code System Code Instructions Start Date End Date Status Dosage Furosemide ND 55361196388 40 MG Orally Once a day Active 1 tablet Lactulose [facility] [address]-09 10 GM Orally Once a day Active 1 packet Spironolactone ND 17284649610 25 MG Orally Once a day Active 1 tablet with food Rifaximin [facility] [address]-64 550 MG Orally Twice a day Active 1 tablet Prolia ND 80752767214 60 MG/ML Subcutaneous Q 6 MONTHS Active 60MG SQ Esomeprazole Magnesium ND 92610977870 40 MG Orally Once a day Active 1 capsule Vital Signs Date/Time: Jul 26, 2018 BMI 19.03 Index Weight 81.9 lbs Height 55 in Temperature 97.0 F Cardiac Monitoring Heart Rate 84 /min Blood Pressure Diastolic 70 mm Hg Blood Pressure Systolic 132 mm Hg Results No Known Results Summary Purpose eClinicalWorks Submission
--- OUTSIDE RECORDS SUMMARY | 2019-01-26 16:34 | XMS REPORT ---
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
[2019-01-26] MEDS ORDERED: TRAMADOL HCL 50 MG TAB PO NR (17:00)
[2019-01-26] MEDS ORDERED: FUROSEMIDE40 MG PO (17:03)
[2019-01-26] MEDS ORDERED: LISINOPRIL40 MG PO (17:03)
[2019-01-26] MEDS ORDERED: AMLODIPINE BESYL5 MG PO (17:03)
--- NOTE | 2019-01-26 18:27 | Diagnostic Imaging Report ---
Exams: Head and cervical spine CTs without IV contrast History: Trauma, fall Comparison studies: None Technique: Axial images were obtained from the brain and cervical spine. Coronal and sagittal images reconstructed from the axial data. Dose modulation, iterative reconstruction, and/or weight based adjustment of the mA/kV was utilized to reduce the radiation dose to as low as reasonably achievable. Radiation dose: Total DLP: 999 mGy*cm. Estimated effective dose: DLP x 0.015 Intravenous contrast: None Findings: Head CT: Scalp: Right parieto-occipital scalp hematoma. No retained hyperdense foreign body. Bones: No fractures, blastic or lytic lesions. Extra-axial spaces: No masses. No fluid collections. Brain sulci: Mildly prominent but age appropriate. Ventricles: Normal in size and configuration. No hydrocephalus. Parenchyma: No mass, acute hemorrhage or acute or chronic cortical insults. A few scattered hypodensities in the supratentorial white matter are nonspecific but most compatible with chronic microvascular ischemic changes.. Sellar/suprasellar region: No abnormalities. Craniocervical junction: The foramen magnum is patent. No Chiari one malformation. Cervical spine CT: Fractures: No cervical spine fracture. Chronic-appearing T3 superior endplate compression fracture with approximately 30% height loss without retropulsion. Soft tissues: No gross abnormalities. Atlantoaxial articulation: Intact. Alignment: Normal lumbar lordosis. No acute subluxations. Cervicomedullary junction: No abnormalities. The foramen magnum is patent. Vertebrae: Bones are demineralized No infection or neoplasm. Degenerative changes: Severely degenerated C4-C5 disc with cystic and cirrhotic degenerative endplate changes. Remaining cervical discs are mildly degenerated. No significant canal stenosis. Mild multilevel uncovertebral facet arthrosis with mild foraminal stenosis bilaterally at C5-C6 Incidental findings: * Chronic inflammatory changes in the right mastoids which are partially opacified. Nonspecific soft tissue in the distal right EAC, possibly impacted cerumen which could be correlated directly visualization. * Lens replacement for previous scattered surgery. * Scattered calcified atherosclerosis. IMPRESSION: Head CT: 1. Right parieto-occipital scalp hematoma without underlying fracture. 2. No acute intracranial abnormalities. 3. Mild age-related generalized volume loss. 4. Mild chronic microvascular ischemic changes. Cervical spine CT: 1. No cervical spine fracture or acute subluxation. 2. Chronic-appearing T3 compression fracture. 3. Multilevel degenerative changes. 4. Cannot exclude ligament, spinal cord and or vascular abnormalities on the basis of this examination. Signed by: Dr. Don Ascencio M.D. on 01/26/2019 6:24 PM
== END 2019-01-26 19:14 | disposition home or self-care (01) ==
LOC: ER 16:30
DX: S00.83XA Contusion of other part of head, initial encounter (principal); S00.01XA Abrasion of scalp, initial encounter; W01.0XXA Fall on same level from slipping, tripping and stumbling without subsequent striking against object, initial encounter; Y92.008 Other place in unspecified non-institutional (private) residence as the place of occurrence of the external cause; I10 Essential (primary) hypertension; K74.60 Unspecified cirrhosis of liver
CPT/HCPCS: 70450; 72125; 99283

== ENCOUNTER 2019-05-22 09:39 | Observation (INO) | payer OTHER ==
[~2019-05-22] VITALS: Ht 149.9 cm; Wt 42.0 kg
[~2019-05-22 09:39] MED LIST changes: +AMLODIPINE BESYL5 MG PO
--- OUTSIDE RECORDS SUMMARY | 2019-05-22 09:42 | XMS REPORT | Continuity of Care Document ---
Author Author Roamz Address Unknown Phone Unavailable Care Team Providers [facility] Office Supervisor Name Role Phone [place] [employer] [place] Unavailable Unavailable Problems Problem Status Onset Date Classification Date Reported Comments Source Age-related osteoporosis without current pathological fracture Active Problem 05/21/2019 Donald Florian Vitamin D deficiency Active Problem 05/21/2019 Donald Florian Scleroderma, limited Active Problem 05/21/2019 Donald Florian Other halfway (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 Active Problem 05/21/2019 Donald Florian Raynaud''s disease without gangrene Active Problem 05/21/2019 Donald Florian Body mass index (BMI) 20.0-20.9, adult Active Problem 05/21/2019 Donald Florian Polyarthritis Active Problem 05/21/2019 Donald Florian 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 Donald Florian Other osteoporosis without current pathological fracture Active Problem 01/15/2019 Donald Florian Renal insufficiency Active Problem 05/21/2019 Donald Florian Hepatic cirrhosis Active Problem 01/27/2019 [facility] Hypervolemia Active Problem 01/27/2019 [facility] Medications Medication Details Route Status Patient Instructions Ordering Provider Order Date Source Furosemide 40 Mg Tablet, 40 Mg Oral Daily Active 07/02/2018 [facility] Lisinopril 40 Mg Tablet, 40 Mg Oral Daily Active 07/02/2018 [facility] Rifaximin (Xifaxan) 550 Mg Tablet, 550 Mg Oral Twice A Day Active 07/02/2018 [facility] Alendronate Sodium 70 Mg Tablet, 70 Mg Oral Weekly Active 07/01/2018 [facility] Hydrocodone Bit/Acetaminophen (Dolliver 5-325 Tablet) 1 Each Tablet, 1 Each Oral As Needed Active 07/01/2018 [facility] Ursodiol 300 Mg Capsule, 300 Mg Oral Twice A Day Active 07/01/2018 [facility] Amlodipine Besylate (Norvasc) 5 Mg Tab, 5 Mg Oral Daily Active 09/19/2017 [facility] Lisinopril 40 Mg Tablet, 40 Mg Oral Daily Active 09/19/2017 [facility] Nadolol (Corgard) 20 Mg Tablet, 1 Tab Oral Daily Active 09/19/2017 [facility] Hydrocodone Bit/Acetaminophen (Hydrocodon-Acetaminophen 5-325) 1 Each Tablet, 3- 325 Mg Oral As Needed Active 10/09/2016 [facility] Propranolol Hcl 10 Mg Tablet, 10 Mg Oral Three Times A Day Active 10/09/2016 [facility] Silver Multivitamin , Oral Daily Active 10/09/2016 [facility] Prolia 60MG SQ Subcutaneous Active 60 MG/ML Subcutaneous Q 6 MONTHS Florian Donald Florian Nadolol 1 tablet Orally Active 20 MG Orally Once a day [place] Donald Florian Spironolactone 1 tablet with food Orally Active 25 MG Orally Once a day [place] Donald Florian Furosemide 1 tablet Orally Active 20 MG Orally Once a day [place] Donald Florian Lisinopril 1 tablet Orally Active 40 MG Orally Once a day [place] Donald Florian Colestipol HCl 2 tablets Orally Active 1 GM Orally bid [place] Donald Florian Ursodiol 1 tablet Orally Active 300 MG Orally Twice a day [place] Donald Florian Rifaximin 1 tablet Orally Active 550 MG Orally Twice a day [place] Donald Florian Furosemide 1 tablet Orally Active 40 MG Orally Once a day [place] Donald Florian Lactulose 1 packet Orally Active 10 GM Orally Once a day Florian Donald Florian Esomeprazole Magnesium 1 capsule Orally Active 40 MG Orally Once a day [place] Donald Ramirezer Lactulose 1 packet Orally Active 10 GM Orally Once a day [place] Donald Florian Acetaminophen With Codeine (Tylenol With Codeine #3 Tablet) 1 Each Tablet As Needed Active [facility] Amlodipine Besylate 5 Mg Tablet Daily Active [facility] Calcium Carb/Vit D3/Minerals (Calcium 600 + D Tablet) 1 Each Tablet Daily Active [facility] Esomeprazole Magnesium (Nexium) 40 Mg Capsule.dr Daily Active [facility] Furosemide 40 Mg Tablet Daily Active [facility] Lactulose 10 Gm/15 Ml Solution Twice A Day Active [facility] Lisinopril 40 Mg Tablet Daily Active [facility] Multivitamin (Multi-Vitamin Daily) 1 Each Tablet Daily Active [facility] Rifaximin (Xifaxan) 550 Mg Tablet Twice A Day Active [facility] Spironolactone 25 Mg Tablet Twice A Day Active [facility] Ursodiol 300 Mg Capsule Daily Active [facility] Allergies, Adverse Reactions, Alerts Substance Category Reaction Severity Reaction type Status Date Reported Comments Source Alendronate Sodium Adverse Reaction Info Not Available Adverse Reaction Active 01/27/2019 Donadl Florian Immunizations No Data Provided for This Section Results Order Name Results Value Reference Range Date Interpretation Comments Source Blood leukocytes automated count (number/volume) 5.03 4.8 - 10.8 07/02/2018 [facility] Blood erythrocytes automated count (number/volume) 3.86 3.6 - 5.1 07/02/2018 [facility] Blood hemoglobin measurement (moles/volume) 12.9 12.0 - 16.0 07/02/2018 [facility] Automated blood hematocrit (volume fraction) 39.6 34.2 - 44.1 07/02/2018 [facility] Automated erythrocyte mean corpuscular volume 102.6 81 - 99 07/02/2018 [facility] Automated erythrocyte mean corpuscular hemoglobin (mass per erythrocyte) 33.4 28 - 32 07/02/2018 [facility] Automated erythrocyte mean corpuscular hemoglobin concentration measurement (mass/volume) 32.6 31 - 35 07/02/2018 [facility] RDW BldCo-Rto 15.8 11.7 - 14.4 07/02/2018 [facility] Automated blood platelet count (count/volume) 138 140 - 360 07/02/2018 [facility] Automated blood segmented neutrophil count as percentage of total leukocytes 52.3 38.7 - 80.0 07/02/2018 [facility] Automated blood lymphocyte count as percentage ot total leukocytes 29.4 18.0 - 39.1 07/02/2018 [facility] Automated blood monocyte count as percentage of total leukocytes 8.7 4.4 - 11.3 07/02/2018 [facility] Automated blood eosinophil count as percentage of total leukocytes 8.2 0.0 - 6.0 07/02/2018 [facility] Automated blood basophil count as percentage of total leukocytes 1.0 0.0 - 1.0 07/02/2018 [facility] IM GRANULOCYTES % 0.4 0.0 - 1.0 07/02/2018 [facility] Automated blood neutrophil count 2.6 2.1 - 6.9 07/02/2018 [facility] Blood lymphocytes count (number/volume) 1.5 1.0 - 3.2 07/02/2018 [facility] Blood monocytes automated count (number/volume) 0.4 0.2 - 0.8 07/02/2018 [facility] Automated blood eosinophil count 0.4 0.0 - 0.4 07/02/2018 [facility] Automated blood basophil count (count/volume) 0.1 0.0 - 0.1 07/02/2018 [facility] Absolute Immature Granulocyte (auto 0.02 0 - 0.1 07/02/2018 [facility] Pathology Reports No Data Provided for This Section Diagnostic Reports No Data Provided for This Section Consultation Notes No Data Provided for This Section Discharge Summaries No Data Provided for This Section History and Physicals No Data Provided for This Section Vital Signs Vital Sign Value Date Comments Source Weight 82.5 01/27/2019 Donald Florian Height 55 01/27/2019 Donald Florian Temperature Oral (F) 98.8 F 01/27/2019 Donald Florian Heart Rate 80 01/27/2019 Donald Florian Diastolic (mm Hg) 72 01/27/2019 Donald Florian Systolic (mm Hg) 138 01/27/2019 Donald Florian Weight 81.9 07/26/2018 Donald Florian Height 55 [...] Provider ADM Date DC Date Status Source Registered Clinic [id number] FUENTES PEARL MD 04/08/2018 [facility] Registered Surgical Day Care [id number] FUENTES PEARL MD 07/02/2018 [facility] Registered Emergency Room [id number] FRANCISCO FRANKLIN MD 01/26/2019 [facility] Procedures Procedure Code Date Perfomer Comments Source Computed tomography of brain without radiopaque contrast [id number] 01/26/2019 [facility] Computed tomography of cervical spine without contrast [id number] 01/26/2019 [facility] EGD DIAGNOSTIC BRUSH WASH [id number] 07/02/2018 [facility] US abdomen complete [id number] 04/08/2018 [facility] Assessment and Plan No Data Provided for This Section Plan of Care Plan of Care Date Source Discharge Date 01/26/19 7:14pm Disposition HOME, SELF-CARE Condition at Discharge Stable Instructions/Education Provided Abrasion Concussion/Head Injury - Adult RICE Therapy Forms Provided Work/School Excuse Prescriptions See Medication Section Referrals BRIANNE PARRY MD Address: [address] [place] [address] ERIK LAWRENCE MD Address: [address] [place] [address] Additional Instructions/Education 1. follow up with your doctor in 1-2 days without fail 2. return to ed as needed 3. tylenol and motrin 01/26/2019 [facility] Social History Social History Date Source Social History Problem Response Recorded Date/Time Onset Date Status Hx Psychiatric Problems No 09/18/2017 1:50am Not Applicable Not Applicable Hx Eating Disorder No 09/18/2017 1:50am Not Applicable Not Applicable Hx Substance Use Disorder No 09/18/2017 1:50am Not Applicable Not Applicable Hx Depression No 09/18/2017 1:50am Not Applicable Not Applicable Hx Alcohol Use No 09/18/2017 1:50am Not Applicable Not Applicable Hx Substance Use Treatment No 09/18/2017 1:50am Not Applicable Not Applicable Hx Physical Abuse No 09/18/2017 1:50am Not Applicable Not Applicable Smoking Status Start Date Stop Date Never Smoker 01/26/2019 [facility] Family History No Data Provided for This Section Advance Directives Order Name Results Value Date Source Advance Directives Advance Directives Directive Response Recorded Date/Time Does the patient have an advance directive? Yes 07/01/18 4:21pm If yes, is advance directive on file with [facility]? No 09/18/17 1:50am If not on file with [facility] will patient provide a copy? Yes 04/08/18 7:36am Do you have a Directive to Physician? Yes 01/26/19 4:58pm Do you have a Medical Power of [place]? Yes 01/26/19 4:58pm Do you have an out of hospital Do Not Resuscitate Order? Yes 01/26/19 4:58pm Do you have any special needs we should be aware of? No 01/26/19 4:58pm Do you have a support person here with you today? Yes 01/26/19 4:58pm Did patient receive Notice of Privacy Practices? Yes 01/26/19 4:58pm Did patient receive patient rights and responsibilities? Yes 01/26/19 4:58pm 01/26/2019 [facility] Functional Status No Data Provided for This Section
--- OUTSIDE RECORDS SUMMARY | 2019-05-22 09:43 | XMS REPORT ---
Author Author Wally Florian [facility] [employer] Address Unknown Phone Unavailable Care Team Providers Care Family Services Worker Name Role Phone Wally Florian Unavailable Allergies, Adverse Reactions, Alerts Substance Reaction Event Type Alendronate Sodium Info Not Available Drug Allergy Problems Problem Type Condition Code Onset Dates Condition Status Problem Age-related osteoporosis without current pathological fracture M81.0 Active Problem Vitamin D deficiency E55.9 Active Problem Raynaud''s disease without gangrene I73.00 Active Problem Scleroderma, limited M34.9 Active Problem Renal insufficiency N28.9 Active Problem Body mass index (BMI) 20.0-20.9, adult Z68.20 Active Problem Polyarthritis M13.0 Active Problem Other rn long term care (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 Z79.899 Active Problem 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 Active Assessment 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 Active Assessment Polyarthritis M13.0 Active Assessment Raynaud''s disease without gangrene I73.00 Active Assessment Scleroderma, limited M34.9 Active Assessment Other [facility] (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 Z79.899 Active Assessment Age-related osteoporosis without current pathological fracture M81.0 Active Medications Medication Code System Code Instructions Start Date End Date Status Dosage Esomeprazole Magnesium ND 17156305124 40 MG Orally Once a day Active 1 capsule Rifaximin [facility] [address]-62 550 MG Orally Twice a day Active 1 tablet Spironolactone ND 30442572032 25 MG Orally Once a day Active 1 tablet with food Prolia ND 78670416314 60 MG/ML Subcutaneous Q 6 MONTHS Active 60MG SQ Lactulose ND 21184705492 10 GM Orally Once a day Active 1 packet Furosemide ND 06564795912 40 MG Orally Once a day Active 1 tablet Vital Signs Date/Time: January 27, 2019 BMI 19.17 Index Weight 82.5 lbs Height 55 in Temperature 98.8 F Cardiac Monitoring Heart Rate 80 /min Blood Pressure Diastolic 72 mm Hg Blood Pressure Systolic 138 mm Hg Results No Known Results Summary Purpose e[employer]Works Submission
[2019-05-22 10:40] LABS: BASOPHILS # (AUTO) 0.1 (0.0-0.1); BASOPHILS % 0.8 % (0.0-1.0); EOSINOPHILS # (AUTO) 0.3 (0.0-0.4); EOSINOPHILS % 3.9 % (0.0-6.0); HEMATOCRIT 33.5 % (34.2-44.1); HEMOGLOBIN 11.6 g/dL (12.0-16.0); LYMPHOCYTES # (AUTO) 1.1 (1.0-3.2); LYMPHOCYTES % 14.1 % (18.0-39.1); MEAN CORPUSCULAR HEMOGLOBIN 34.1 pg (28-32); MEAN CORPUSCULAR HGB CONC 34.6 g/dL (31-35); MEAN CORPUSCULAR VOLUME 98.5 fL (81-99); MONOCYTES # (AUTO) 0.6 (0.2-0.8); MONOCYTES % 8.2 % (4.4-11.3); NEUTROPHILS # (AUTO) 5.4 (2.1-6.9); NEUTROPHILS % 72.3 % (38.7-80.0); PLATELET COUNT 137 x10e3/uL (140-360)
[2019-05-22 10:51] LABS: INR 0.98; PROTHROMBIN TIME 13.5 seconds (11.9-14.5)
[2019-05-22 10:52] LABS: PARTIAL THROMBOPLASTIN TIME 33.8 seconds (23.8-35.5)
[2019-05-22 11:01] LABS: ALBUMIN 2.3 g/dL (3.5-5.0); ALBUMIN/GLOBULIN RATIO 0.5 (0.8-2.0); ANION GAP 11.8 mmol/L (8-16); CALCIUM 10.1 mg/dL (8.4-10.2); CREATININE, SERUM 1.67 mg/dL (0.57-1.11); POTASSIUM 4.8 mmol/L (3.5-5.1)
--- NOTE | 2019-05-22 11:06 | Diagnostic Imaging Report ---
CT BRAIN WO HISTORY: Fall COMPARISON: Head CT 01/26/2019 Technique: Noncontrast axial scans were obtained from skull base to the vertex. Coronal and sagittal reconstructions obtained from the axial data. One or more of the following dose reduction techniques were used: Automated exposure control, adjustment of the mA and/or kV according to patient size, and/or utilization of iterative reconstruction technique. DISCUSSION: Scalp/Skull: Small right parietal scalp hematoma. No calvarial fracture. Brain sulci: Mildly prominent. Ventricles: Compensatory dilatation. Extra-axial spaces: No masses or fluid collections. Carotid siphon calcifications are present. Parenchyma: Mild bilateral deep white matter hypodensity is likely chronic microvascular ischemic change. Otherwise, no masses, hemorrhage, or large vascular territory acute infarct. Dural sinuses: No abnormal densities. Sellar/Suprasellar region: Intact. Skull base: Intact. Incidental findings: Bilateral ocular lens replacement. IMPRESSION: 1. No acute intracranial abnormalities. 2. Mild supratentorial chronic microvascular ischemic change. Mild generalized cerebral volume loss. Signed by: Dr. Jamie Patrick M.D. on 05/22/2019 11:02 AM
--- NOTE | 2019-05-22 11:10 | Diagnostic Imaging Report ---
CT CERVICAL SPINE WO HISTORY: Fall COMPARISON: Cervical spine CT 01/26/2019 TECHNIQUE: CT of the cervical spine without contrast. Sagittal and coronal reformations were created. One or more of the following dose reduction techniques were used: Automated exposure control, adjustment of the mA and/or kV according to patient size, and/or utilization of iterative reconstruction technique. FINDINGS: Mild bone demineralization limits evaluation. Cervical lordosis is preserved. There is no scoliosis or subluxation. No definite acute fracture or compression deformity is seen. Mild chronic T3 vertebral compression fracture is not associated with significant retropulsion. Nonspecific sclerosis of the T5 vertebral body is partially visualized The craniocervical junction is intact. No gross spinal canal masses are seen. The paravertebral and paraspinal soft tissues are unremarkable. Mild to moderate multilevel spondylosis is most prominent at C4-C5. Mild to moderate atlantoaxial arthrosis is present as well. The submandibular and parotid glands appear atrophic. Scattered atherosclerotic calcifications are seen. There is scarring in the lung apices. IMPRESSION: 1. No acute osseous abnormalities. 2. Mild to moderate multilevel spondylosis, most prominent at C4-C5. 3. Chronic mild T3 vertebral compression fracture without retropulsion. Signed by: Dr. Jamie Patrick M.D. on 05/22/2019 11:07 AM
[2019-05-22] MEDS ORDERED: SODIUM CHLORIDE 0.9% 500ML 500 ML IV ONE (11:15)
[2019-05-22 11:35] LABS: BILIRUBIN,URINE NEGATIVE (NEGATIVE); CLARITY,URINE CLEAR (CLEAR); COLOR,URINE YELLOW (YELLOW); KETONES,URINE NEGATIVE (NEGATIVE); LEUKOCYTE ESTERASE ,URINE TRACE (NEGATIVE); NITRITE,URINE NEGATIVE (NEGATIVE); PROTEIN,URINE DIPSTICK NEGATIVE (NEGATIVE); URINE UROBILINOGEN 0.2 mg/dL (0.2 - 1)
--- NOTE | 2019-05-22 12:26 | Diagnostic Imaging Report ---
EXAM: CT Chest, Abdomen and Pelvis WITHOUT intravenous contrast INDICATION: Trauma COMPARISON: None. TECHNIQUE: Chest, Abdomen and pelvis were scanned utilizing a multidetector helical scanner from the thoracic inlet to the pubic symphysis without IV contrast. Coronal and sagittal reformations were obtained. Routine protocol was performed. Scan was performed during portal venous phase. IV CONTRAST: None ORAL CONTRAST: Water RADIATION DOSE: Total DLP: (DLP x 0.015 x size factor) mGy*cm Dose modulation, iterative reconstruction, and/or weight based adjustment of the mA/kV was utilized to reduce the radiation dose to as low as reasonably achievable. FINDINGS: LINES/ TUBES: None. LUNGS AND AIRWAYS: The central airways are patent. No focal consolidation. 4 mm posterior right lower lobe pulmonary nodule. 4 mm right upper lobe pulmonary nodule (series 301 image 14.) 3 mm left upper lobe pulmonary nodule (series 01 image 19). 3 mm left lower lobe pulmonary nodule (series 301 image 46). PLEURA: The pleural spaces are clear. HEART AND MEDIASTINUM: The thyroid gland appears unremarkable. No supraclavicular, axillary, mediastinal, or hilar lymphadenopathy. Multichamber cardiomegaly. Dense atherosclerotic calcifications of the coronary arteries and thoracic aorta. Large hiatal hernia/distal esophageal thickening. HEPATOBILIARY: No evidence of acute traumatic injury to the liver. Shrunken, severely cirrhotic liver. No definite focal mass lesion. Calcified gallstone. SPLEEN: No evidence of acute traumatic injury to the spleen. No splenomegaly. PANCREAS: No focal masses or ductal dilatation. ADRENALS: No adrenal nodules. KIDNEYS/URETERS: 3 mm left upper pole nonobstructive renal calculus. No hydronephrosis. No right-sided calculi. PELVIC ORGANS/BLADDER: Unremarkable. PERITONEUM / RETROPERITONEUM: Large volume ascites. No free air. LYMPH NODES: No lymphadenopathy. VESSELS: Diffuse atherosclerotic calcifications of the nonaneurysmal abdominal aorta and major branches. GI TRACT: Severe sigmoid diverticulosis without CT evidence of diverticulitis. Normal bowel thickening. No bowel obstruction. BONES AND SOFT TISSUES: Healed right pubic fracture. Diffuse osteopenia. No acute osseous injury. Old T3 compression fracture and superior endplate deformity of T5. Multilevel degenerative changes of the thoracic and lumbar spine. IMPRESSION: No evidence of acute traumatic injury to the chest abdomen or pelvis. Severe hepatic cirrhosis and large volume abdominal ascites. Large hiatal hernia with possible distal esophageal thickening. Further endoscopic evaluation on a nonurgent basis is recommended. Cholelithiasis. 3 mm left upper pole nonobstructive renal calculus. Scattered 3 to 4 mm bilateral pulmonary nodules. If the patient is low risk, no further follow-up is needed. If the patient is high risk, consider chest CT in 12 months per Fleischner society guidelines 2017. Severe sigmoid diverticulosis without CT evidence of diverticulitis. Heavy diffuse atherosclerotic calcifications including of the coronary arteries. Signed by: Johnny Claudio MD on 05/22/2019 12:22 PM
[2019-05-22] MEDS ORDERED: SODIUM CHLORIDE 0.9% 1000ML 1,000 ML IV ONE (12:45)
[2019-05-22] MEDS ORDERED: ONDANSETRON HCL INJ 2MG/ML 2ML 2 MG/ML VIAL IV PRN (12:45)
[2019-05-22 13:13] LABS: BACTERIA,URINE FEW /HPF; EPITHELIAL CELLS,URINE RARE /LPF; WBC,URINE (MAN) 21-50 /HPF (0-5)
[2019-05-22] MEDS ORDERED: TETANUS/DIPHTHERIA TOX ADULT 0.5 ML SYR IM ONE (13:15)
--- OUTSIDE RECORDS SUMMARY | 2019-05-22 13:58 | XMS REPORT | Continuity of Care Document ---
Author Author [employer] Address Unknown Phone Unavailable Care Team Providers Care State Wildlife Officer Name Role Phone [employer] Information [employer] Unavailable Unavailable Problems Problem Status Onset Date Classification Date Reported Comments Source Age-related osteoporosis without current pathological fracture Active Problem 05/21/2019 Donald Florian Vitamin D deficiency Active Problem 05/21/2019 Donald Florian Scleroderma, limited Active Problem 05/21/2019 Donald Florian Other care home (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 Active Problem 05/21/2019 Donald [...] Donald Florian Hepatic cirrhosis Active Problem 01/27/2019 [facility] Hypervolemia Active Problem 01/27/2019 [facility] Medications Medication Details Route Status Patient Instructions Ordering Provider Order Date Source Furosemide 40 Mg Tablet, 40 Mg Oral Daily Active 07/02/2018 [facility] Lisinopril 40 Mg Tablet, 40 Mg Oral Daily Active 07/02/2018 [facility] Rifaximin (Xifaxan) 550 Mg Tablet, 550 Mg Oral Twice A Day Active 07/02/2018 [facility] Alendronate Sodium 70 Mg Tablet, 70 Mg Oral Weekly Active 07/01/2018 [facility] Hydrocodone Bit/Acetaminophen ([place] 5-325 Tablet) 1 Each Tablet, 1 Each Oral As Needed Active 07/01/2018 [facility] Ursodiol 300 Mg Capsule, 300 Mg Oral Twice A Day Active 07/01/2018 [facility] Amlodipine Besylate (Norvasc) 5 Mg Tab, 5 Mg Oral Daily Active 09/19/2017 [facility] Lisinopril 40 Mg Tablet, 40 Mg Oral Daily Active 09/19/2017 [facility] Nadolol (Corgard) 20 Mg Tablet, 1 Tab Oral Daily Active 09/19/2017 [facility] Hydrocodone Bit/Acetaminophen (Hydrocodon-Acetaminophen 5-325) 1 Each Tablet, 3- 325 Mg Oral As Needed Active 10/09/2016 [facility] Propranolol Hcl 10 Mg Tablet, 10 Mg Oral Three Times A Day Active 10/09/2016 [facility] Silver Multivitamin , Oral Daily Active 10/09/2016 [facility] Prolia 60MG SQ Subcutaneous Active 60 MG/ML Subcutaneous Q 6 MONTHS Florian Donald Florian Nadolol 1 tablet Orally Active 20 MG Orally Once a day [place] Donald Florian Spironolactone 1 tablet with food Orally Active 25 MG Orally Once a day [place] Donald Florian Furosemide 1 tablet Orally Active 20 MG Orally Once a day [place] Donald Florian Lisinopril 1 tablet Orally Active 40 MG Orally Once a day [place] Donald Florian Colestipol HCl 2 tablets Orally Active 1 GM Orally bid [place] Donald Florian Ursodiol 1 tablet Orally Active 300 MG Orally Twice a day [place] Donald Florian Rifaximin 1 tablet Orally Active 550 MG Orally Twice a day [place] Donald Florian Furosemide 1 tablet Orally Active 40 MG Orally Once a day [place] Donald Florian Lactulose 1 packet Orally Active 10 GM Orally Once a day [place] Donald Florian Esomeprazole Magnesium 1 capsule Orally Active 40 MG Orally Once a day [place] Donald Ramirezer Lactulose 1 packet Orally Active 10 GM Orally Once a day [place] Donald Florian Acetaminophen With Codeine (Tylenol With Codeine #3 Tablet) 1 Each Tablet As Needed Active [facility] Amlodipine Besylate 5 Mg Tablet Daily Active [facility] Calcium Carb/Vit D3/Minerals (Calcium 600 + D Tablet) 1 Each Tablet Daily Active [facility] Esomeprazole Magnesium (Nexium) 40 Mg Capsule.dr Daily Active [facility] Furosemide 40 Mg Tablet Daily Active [facility] Lactulose 10 Gm/15 Ml Solution Twice A Day Active [facility] Lisinopril 40 Mg Tablet Daily Active [facility] Multivitamin (Multi-Vitamin Daily) 1 Each Tablet Daily Active [facility] Rifaximin (Xifaxan) 550 Mg Tablet Twice A Day Active [facility] Spironolactone 25 Mg Tablet Twice A Day Active [facility] Ursodiol 300 Mg Capsule Daily Active [facility] Allergies, Adverse Reactions, Alerts Substance Category Reaction Severity Reaction type Status Date Reported Comments Source Alendronate Sodium Adverse Reaction Info Not Available Adverse Reaction Active 01/27/2019 Donald Florian Immunizations No Data Provided for This Section Results Order Name Results Value Reference Range Date Interpretation Comments Source Blood leukocytes automated count (number/volume) 5.03 4.8 - 10.8 07/02/2018 [facility] Blood erythrocytes automated count (number/volume) 3.86 3.6 - 5.1 07/02/2018 [facility] Blood hemoglobin measurement (moles/volume) 12.9 12.0 - 16.0 07/02/2018 [facility] Automated blood hematocrit (volume fraction) 39.6 34.2 - 44.1 07/02/2018 [facility] Automated erythrocyte mean corpuscular volume 102.6 81 - 99 07/02/2018 [facility] Automated erythrocyte mean corpuscular hemoglobin (mass per erythrocyte) 33.4 28 - 32 07/02/2018 [facility] Automated erythrocyte mean corpuscular hemoglobin concentration measurement (mass/volume) 32.6 31 - 35 07/02/2018 [facility] RDW BldCo-Rto 15.8 11.7 - 14.4 07/02/2018 [facility] Automated blood platelet count (count/volume) 138 140 - 360 07/02/2018 [facility] Automated blood segmented neutrophil count as percentage of total leukocytes 52.3 38.7 - 80.0 07/02/2018 [facility] Automated blood lymphocyte count as percentage ot total leukocytes 29.4 18.0 - 39.1 07/02/2018 [facility] Automated blood monocyte count as percentage of total leukocytes 8.7 4.4 - 11.3 07/02/2018 [facility] Automated blood eosinophil count as percentage of total leukocytes 8.2 0.0 - 6.0 07/02/2018 [facility] Automated blood basophil count as percentage of total leukocytes 1.0 0.0 - 1.0 07/02/2018 [facility] IM GRANULOCYTES % 0.4 0.0 - 1.0 07/02/2018 [facility] Automated blood neutrophil count 2.6 2.1 - 6.9 07/02/2018 [facility] Blood lymphocytes count (number/volume) 1.5 1.0 - 3.2 07/02/2018 [facility] Blood monocytes automated count (number/volume) 0.4 0.2 - 0.8 07/02/2018 [facility] Automated blood eosinophil count 0.4 0.0 - 0.4 07/02/2018 [facility] Automated blood basophil count (count/volume) 0.1 0.0 - 0.1 07/02/2018 [facility] Absolute Immature Granulocyte (auto 0.02 0 - 0.1 07/02/2018 [facility] Pathology Reports No Data Provided for This [...] Date DC Date Status Source Registered Clinic [id number] FUENTES PEARL MD 04/08/2018 [facility] Registered Surgical Day Care [id number] FUENTES PEARL MD 07/02/2018 [facility] Registered Emergency Room [id number] FRANCISCO FRANKLIN MD 01/26/2019 [facility] Procedures Procedure Code Date Perfomer Comments Source Computed tomography of brain without radiopaque contrast [id number] 01/26/2019 [facility] Computed tomography of cervical spine without contrast [id number] 01/26/2019 [facility] EGD DIAGNOSTIC BRUSH WASH [id number] 07/02/2018 [facility] US abdomen complete [id number] 04/08/2018 [facility] Assessment and Plan No Data Provided for This Section Plan of Care Plan of Care Date Source Discharge Date 01/26/19 7:14pm Disposition HOME, SELF-CARE Condition at Discharge Stable Instructions/Education Provided Abrasion Concussion/Head Injury - Adult RICE Therapy Forms Provided Work/School Excuse Prescriptions See Medication Section Referrals BRIANNE PARRY MD Address: [address] [place] [address] ERIK LAWRENCE MD Address: [address] [facility] [place] [place] [address] [place] [address] Additional Instructions/Education 1. follow up with your doctor in 1-2 days without fail 2. return to ed as needed 3. tylenol and motrin 01/26/2019 [facility] Social History Social History Date Source Social [...] Start Date Stop Date Never Smoker 01/26/2019 [facility] Family History No Data Provided for This Section Advance Directives Order Name Results Value Date Source Advance Directives Advance Directives Directive Response Recorded Date/Time Does the patient have an advance directive? Yes 07/01/18 4:21pm If yes, is advance directive on file with [facility]? No 09/18/17 1:50am If not on file with [facility] will patient provide a copy? Yes 04/08/18 7:36am Do you have a Directive to Physician? Yes 01/26/19 4:58pm Do you have a Medical Power of Acoustical Logging Engineer? Yes 01/26/19 4:58pm Do you have an [...] rights and responsibilities? Yes 01/26/19 4:58pm 01/26/2019 [facility] Functional Status No Data Provided for This Section
[2019-05-22] MEDS ORDERED: TRAMADOL HCL 50 MG TAB PO ONE (14:30)
[2019-05-22 15:14] VITALS: BP 129/88
[2019-05-22 15:23] VITALS: BP 129/58
--- NOTE | 2019-05-22 15:27 | NUR ---
Received patient from ER. Patient in stable condition, no signs of distress or c/o pain at this time. All safety measures in place. Family at bedside. Will continue to monitor.
[2019-05-22] MEDS ORDERED: LEVOTHYROXINE50 MCG PO (15:34)
[2019-05-22 15:37] VITALS: BP 129/58
[2019-05-22 16:17] VITALS: BP 129/58
--- NOTE | 2019-05-22 18:59 | NUR ---
Report given to night nurse. Patient in stable condition, no signs of distress or c/o pain at this time. All safety measures in place. Family at bedside.
[2019-05-22 19:30] VITALS: BP 151/67
[2019-05-22 19:30] LABS: CREATINE KINASE MB 2.3 ng/mL (0-5.0)
[2019-05-22 20:00] VITALS: BP 151/67
[2019-05-23] VITALS: BP 120/54
[2019-05-23 04:00] VITALS: BP 130/57
[2019-05-23 05:28] LABS: BASOPHILS # (AUTO) 0.1 (0.0-0.1); BASOPHILS % 0.8 % (0.0-1.0); EOSINOPHILS # (AUTO) 0.3 (0.0-0.4); EOSINOPHILS % 4.5 % (0.0-6.0); HEMATOCRIT 29.2 % (34.2-44.1); HEMOGLOBIN 9.9 g/dL (12.0-16.0); LYMPHOCYTES # (AUTO) 0.7 (1.0-3.2); LYMPHOCYTES % 9.9 % (18.0-39.1); MEAN CORPUSCULAR HEMOGLOBIN 33.7 pg (28-32); MEAN CORPUSCULAR HGB CONC 33.9 g/dL (31-35); MEAN CORPUSCULAR VOLUME 99.3 fL (81-99); MONOCYTES # (AUTO) 0.5 (0.2-0.8); MONOCYTES % 7.5 % (4.4-11.3); NEUTROPHILS # (AUTO) 5.1 (2.1-6.9); NEUTROPHILS % 76.5 % (38.7-80.0); PLATELET COUNT 109 x10e3/uL (140-360); RED BLOOD COUNT 2.94 x10e6/uL (3.6-5.1); RED CELL DISTRIBUTION WIDTH 15.1 % (11.7-14.4)
[2019-05-23 05:43] LABS: ALBUMIN/GLOBULIN RATIO 0.6 (0.8-2.0); ANION GAP 10.9 mmol/L (8-16); CALCIUM 8.8 mg/dL (8.4-10.2); CREATININE, SERUM 1.58 mg/dL (0.57-1.11); POTASSIUM 4.9 mmol/L (3.5-5.1)
[2019-05-23 06:45] LABS: CREATINE KINASE MB 2.1 ng/mL (0-5.0)
[2019-05-23 07:58] VITALS: BP 129/60
[2019-05-23 08:43] VITALS: BP 129/60
[2019-05-23] MEDS ORDERED: FUROSEMIDE INJ 10 MG/ML 4 ML VIAL IV ONE (10:45)
[2019-05-23 12:03] VITALS: BP 144/80
--- NOTE | 2019-05-23 12:20 | NUR ---
Right AC IV discontinued. No signs of infiltration noted. 2x2 gauze and tape. Taken via wheelchair to personal car. Accompanied by son. AAOX3 to time, person, place. Respirations even and unlabored. Discharge instructions, rx, and, all personal belongings taken with patient.
--- NOTE | 2019-05-24 06:26 | Discharge Summary ---
PRIMARY CARE PHYSICIAN: Dr. Yuliet Felder. FINAL DIAGNOSES: 1. The patient had an accidental fall. No obvious injury. 2. Advanced liver cirrhosis. 3. Chronic hyponatremia. 4. Chronic ascites. SUMMARY: An 88-year-old female with an accidental fall and has no obvious injury. The patient had multiple workup here including CT scan of the brain, that was negative. At baseline, the patient has advanced liver cirrhosis per family. The patient is otherwise stable today. She want to go home and she is back to her baseline. No complaint of pain. She does have abdominal ascites, but she did not have any paracentesis on a routine basis. Usually, the patient is taking medication, which she has at home. The ascites subsequently subsided. The patient is otherwise stable at this time. She will go home today. Resume her home medication. I will give her 1 dose of IV Lasix. The patient to follow up with her family physician for continue with routine outpatient care. No further workup at this time. The patient is otherwise stable. MD JENNIFER Collado/SHARRI /[id number]
== END 2019-05-23 12:20 | disposition home or self-care (01) ==
LOC: ER 09:39 → INTOOBSV 13:54 → ERHOLD 13:54 → MED/SURG2 15:03
PROVIDERS: ADMIT Internal Medicine; ATTEND Internal Medicine
DX: K74.60 Unspecified cirrhosis of liver (principal); S01.01XA Laceration without foreign body of scalp, initial encounter; W01.190A Fall on same level from slipping, tripping and stumbling with subsequent striking against furniture, initial encounter; Y93.01 Activity, walking, marching and hiking; Y92.018 Other place in single-family (private) house as the place of occurrence of the external cause; N28.9 Disorder of kidney and ureter, unspecified; E87.1 Hypo-osmolality and hyponatremia; S06.890A Other specified intracranial injury without loss of consciousness, initial encounter; E03.9 Hypothyroidism, unspecified; R18.8 Other ascites
CPT/HCPCS: 12001; 36415 ×2; 70450; 71250; 72125; 74176; 80053 ×2; 81001; 82140; 82550 ×2; 82553 ×2; 83735; 84484 ×2; 85025 ×2; 85610; 85730; 86850; 86900; 87086; 90471; 90714; 93005; 99284; G0378 ×2; J1940; J2405; J7030; J7040